=== PATIENT | female | born 1975 | race Caucasian/White ===

== ENCOUNTER 2021-04-02 11:41 | Emergency (ER) | payer BC ==
--- OUTSIDE RECORDS SUMMARY | 2021-04-02 11:43 | XMS REPORT | Continuity of Care Document ---
:1975 Author Organization [facility] t Address [address] [place] [address] Dr. Arriaza [address] [place] [id number] Care Team Providers Name Role Phone Unavailable Unavailable Unavailable Problems This patient has no known problems. Allergies, Adverse Reactions, Alerts This patient has no known allergies or adverse reactions. Medications This patient has no known medications. Procedures This patient has no known procedures. Results This patient has no known results.
[2021-04-02 12:48] LABS: Absolute Lymphocytes (CBC) 1.1 K/uL (0.7-4.9); Basophils % 0.2 % (0-1.3); Hematocrit 39.1 % (36.0-45.0); Lymphocytes % 8.2 % (15.3-44.8); MPV 7.6 fL (7.6-11.3); RBC Red Blood Cell Count 4.57 M/uL (3.86-4.86)
[2021-04-02 13:04] LABS: Potassium 3.1 mmol/L (3.5-5.1)
[2021-04-02] MEDS ORDERED: ONDANSETRON 4 MG/2 ML VIAL ONE (13:35)
--- NOTE | 2021-04-02 13:36 | RAD REPORT ---
EXAM DESCRIPTION: CT - Chest For Pe Angio - 04/02/2021 1:23 pm CLINICAL HISTORY: Chest pain. DYSPNEA COMPARISON: No comparisons TECHNIQUE: CT angiogram of the pulmonary arteries was performed with MIP. All CT scans are performed using dose optimization technique as appropriate and may include automated exposure control or mA/KV adjustment according to patient size. FINDINGS: No evidence of pulmonary thromboembolism. No acute aortic finding demonstrated. Moderate bilateral peripherally oriented ground-glass lung opacities are present greatest in the lowe r lobes. No significant pericardial or pleural fluid. No concerning bony finding. IMPRESSION: No evidence of pulmonary thromboembolism. Moderate bilateral ground-glass opacities in the periphery of lower lobes compatible with COVID-19 in fection.
--- NOTE | 2021-04-02 13:49 | ER ---
Nurse's Notes [facility] Name: Toshia Maynard Age: 45 yrs Sex: Female : 1975 Arrival Date: 04/02/2021 Time: 11:48 Bed 18 Private MD: Caio Kinsey Diagnosis: Pneumonia due to SARS-associated coronavirus Presentation: 04/02 12:12 Chief complaint: Spouse and/or significant other states: Pt was diagnosed with kg pneumonia last Tuesday at [place] and was started on Zithromax and didn't work and started her on stronger dose of Zithromax. Her PCP sent her over today. Coronavirus screen: Vaccine status: Patient reports being unvaccinated. Ebola Screen: Patient negative for fever greater than or equal to 101.5 degrees Fahrenheit, and additional compatible Ebola Virus Disease symptoms Patient denies exposure to infectious person. Patient denies travel to an Ebola-affected area in the 21 days before illness onset. Initial Sepsis Screen: Does the patient meet any 2 criteria? No. Patient's initial sepsis screen is negative. Does the patient have a suspected source of infection? Yes: Productive cough/pneumonia. Risk Assessment: Do you want to hurt yourself or someone else? Patient reports no desire to harm self or others. Onset of symptoms was March 29, 2021. 12:12 Method Of Arrival: Wheelchair kg 12:12 Acuity: TOD 3 kg Triage Assessment: 12:16 General: Appears uncomfortable, ill, Behavior is calm, cooperative, appropriate for kg age, quiet. Pain: Complains of pain in abdomen. PRODUCTION SUPV: 12:16 LMP N/A - Hysterectomy kg Historical: - Allergies: 12:16 PENICILLINS; kg - Home Meds: 12:16 Singulair Oral [Active]; prednisolone Oral [Active]; Xyzal oral [Active]; Zithromax kg Oral [Active]; atorvastatin oral [Active]; - PMHx: 12:16 Hypercholesterolemia; kg - PSHx: 12:16 Tonsillectomy; Right knee; L5 ruptured disc; section; Total abdominal kg hysterectomy; - Immunization history:: Adult Immunizations not up to date, Client reports having NOT received the Covid vaccine. - Social history:: Smoking status: Patient denies any tobacco usage or history of. Screenin:35 Abuse screen: Denies threats or abuse. Denies injuries from another. Nutritional ss screening: No deficits noted. Tuberculosis screening: Never had TB. Fall Risk None identified. Vital Signs: 12:12 BP 118 / 84; Pulse 110; Resp 22; Temp 98.4; Pulse Ox 100% on R/A; Weight 108.86 kg; kg Height 5 ft. 9 in. (175.26 cm); Pain 8/10; 13:35 BP 134 / 77; Pulse 97; Resp 19; Pulse Ox 97% on R/A; ss 15:32 BP 136 / 80; Pulse 98; Resp 16; Pulse Ox 100% ; ch5 12:12 Body Mass Index 35.44 (108.86 kg, 175.26 cm) kg ED Course: 11:48 Patient arrived in ED. mr 11:48 Caio Kinsey is Private Physician. mr 11:57 Kendra Steven F[facility]-C [facility] kb 11:57 Diego Land MD is Attending Physician. kb 12:16 Triage completed. kg 12:16 Arm band placed on right wrist. kg 12:25 Inserted saline lock: 20 gauge in right antecubital area, using aseptic technique. kg 12:34 CBC with Diff Sent. kg 12:34 Blood Culture Adult (2) Sent. kg 12:34 Basic Metabolic Panel Sent. kg 12:34 D-Dimer Sent. kg 12:34 Lactate Sent. kg 12:34 Procalcitonin Sent. kg 13:23 CT Chest For PE Angio In Process Unspecified. EDMS 13:35 Patient has correct armband on for positive identification. Bed in low position. Call ss light in reach. 14:00 Libby Herbert is Primary Nurse. kh1 15:32 No provider procedures requiring assistance completed. intact. ch5 Administered Medications: 13:25 Drug: Zofran (Ondansetron) 4 mg Route: IVP; Site: right antecubital; kg 14:09 Drug: NS 0.9% 1000 ml Route: IV; Rate: 1000 ml; Site: right antecubital; kh1 14:09 Drug: SOLU-Medrol (methylPrednisoLONE) 125 mg Route: IVP; Site: right antecubital; kh1 Outcome: 13:49 Discharge ordered by . kb 15:32 Discharged to home via wheelchair, with family. ch5 15:32 Condition: stable 15:32 Discharge instructions given to patient. 15:34 Patient left the ED. ch5 Signatures: Dispatcher [employer] EDKendra Hall, QUETA NEWTON-Jovita ArmendarizBere mr SalmonDo, RN RN Kayleigh Alvarez RN RN kg Harris, Kecia formerly [facility], 1928–1983 Dawit Villalobos RN RN [facility]
--- NOTE | 2021-04-02 13:50 | EDPHYS ---
Physician Documentation [facility] Name: Toshia Maynard Age: 45 yrs Sex: Female : 1975 Arrival Date: 04/02/2021 Time: 11:48 Bed 18 Private MD: Caio Kinsey ED Physician Diego Land HPI: 04/02 17:20 This 45 yrs old Female presents to ER via Wheelchair with complaints of kb Pneumonia. 17:20 The patient or guardian reports cough, difficulty breathing. Onset: The kb symptoms/episode began/occurred 3 week(s) ago. Severity of symptoms: At their worst the symptoms were moderate, in the emergency department the symptoms are unchanged. Modifying factors: The symptoms are alleviated by nothing, the symptoms are aggravated by nothing. Associated signs and symptoms: The patient has no apparent associated signs or symptoms. The patient has not experienced similar symptoms in the past. The patient has been recently seen by a physician:. Pt was diagnosed with covid 3 weeks ago. States she went to [place] last week for shortness of breath and cough. Was diagnosed with pneumonia and put on zithromax. Her PCP put her on a stronger dose of zithromax yesterday after she had a repeat chest x-ray done. Went to PCP office today and was sent to the ER.. 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 - Social history:: Smoking status: Patient denies any tobacco usage or history of. ROS: 17:19 Abdomen/GI: Negative for abdominal pain, nausea, vomiting, diarrhea, and constipation. kb 17:19 Constitutional: Positive for body aches, chills, fatigue, fever, malaise. 17:19 Respiratory: Positive for cough, dyspnea on exertion, shortness of breath. 17:19 All other systems are negative. Exam: 17:19 Head/Face: Normocephalic, atraumatic. ENT: Moist Mucous membranes Cardiovascular: kb Regular rate and rhythm with a normal S1 and S2. No gallops, murmurs, or rubs. No pulse deficits. Respiratory: Respirations even and unlabored. No increased work of breathing, no retractions or nasal flaring. Abdomen/GI: Soft, non-tender. No distention Skin: Warm, dry with normal turgor. Normal color. MS/ Extremity: Pulses equal, no cyanosis. Neurovascular intact. Full, normal range of motion. Neuro: Awake and alert, GCS 15, oriented to person, place, time, and situation. Moves all extremities. Normal gait. Psych: Awake, alert, with orientation to person, place and time. Behavior, mood, and affect are within normal limits. 17:19 Constitutional: The patient appears alert, awake, uncomfortable. Vital Signs: 12:12 BP 118 / 84; Pulse 110; Resp 22; Temp 98.4; Pulse Ox 100% on R/A; Weight 108.86 kg; kg Height 5 ft. 9 in. (175.26 cm); Pain 8/10; 13:35 BP 134 / 77; Pulse 97; Resp 19; Pulse Ox 97% on R/A; ss 15:32 BP 136 / 80; Pulse 98; Resp 16; Pulse Ox 100% ; ch5 12:12 Body Mass Index 35.44 (108.86 kg, 175.26 cm) kg MDM: 12:16 Patient medically screened. kb 17:18 Data reviewed: vital signs, nurses notes. Data interpreted: Pulse oximetry: on room air kb is 100 %. Interpretation: normal. Counseling: I had a detailed discussion with the patient and/or guardian regarding: the historical points, exam findings, and any diagnostic results supporting the discharge/admit diagnosis, lab results, radiology results, the need for outpatient follow up, a family practitioner, to return to the emergency department if symptoms worsen or persist or if there are any questions or concerns that arise at home. 17:18 ED course: Pt oxygen saturation 97-100% on room air during entire visit. No oxygen kb requirement. Pt educated on covid pneumonia findings. . 04/02 12:17 Order name: CBC with Diff; Complete Time: 12:50 kb 04/02 12:17 Order name: Basic Metabolic Panel; Complete Time: 13:06 kb 04/02 12:17 Order name: Blood Culture Adult (2) kb 04/02 12:17 Order name: D-Dimer; Complete Time: 12:53 kb 04/02 12:17 Order name: Lactate; Complete Time: 13:06 kb 04/02 12:17 Order name: Procalcitonin; Complete Time: 13:32 kb 04/02 12:17 Order name: IV Start; Complete Time: 12:34 kb 04/02 12:53 Order name: CT Chest For PE Angio; Complete Time: 13:36 kb Administered Medications: 13:25 Drug: Zofran (Ondansetron) 4 mg Route: IVP; Site: right antecubital; kg 14:09 Drug: NS 0.9% 1000 ml Route: IV; Rate: 1000 ml; Site: right antecubital; kh1 14:09 Drug: SOLU-Medrol (methylPrednisoLONE) 125 mg Route: IVP; Site: right antecubital; kh1 Disposition: 04/03 08:16 Co-signature as Attending Physician, Diego Land MD I agree with the assessment and shandra plan of care. Disposition Summary: 04/02/21 13:49 Discharge Ordered Location: Home kb Condition: Stable kb Diagnosis - Pneumonia due to SARS-associated coronavirus kb Followup: kb - With: Private Physician - When: 2 - 3 days - Reason: Recheck today's complaints, Continuance of care, Re-evaluation by your physician Followup: kb - With: Emergency Department - When: As needed - Reason: Worsening of condition Discharge Instructions: - Discharge Summary Sheet kb - COVID-19 kb - COVID-19 Frequently Asked Questions kb - 10 Things You Can Do to Manage Your COVID-19 Symptoms at Home - [facility] kb Forms: - Medication Reconciliation Form kb - Thank You Letter kb - Antibiotic Education kb - Prescription Opioid Use kb Signatures: Dispatcher [employer] Kendra Max FNP-C FNP-Diego Barker MD MD cha Graham, Kristen, [place] RN Libby Honeycutt [facility]
[2021-04-02] MEDS ORDERED: METHYLPREDNISOLONE 125 MG INJ ONE (14:25)
[2021-04-02 16:03] VITALS: TEMP 98.4
[2021-04-02 16:06] VITALS: BP 136/80; O2SAT 100
== END 2021-04-02 15:34 | disposition home or self-care (01) ==
LOC: ER 11:41
DX: U07.1 COVID-19 (principal); J12.82 Pneumonia due to coronavirus disease 2019; E78.00 Pure hypercholesterolemia, unspecified; Z88.0 Allergy status to penicillin
CPT/HCPCS: 87040 ×2; 85025; 80048; 36415; 85379; 83605; 84145; 71275; 96375; 96374; 99284; Q9967; J2930; J2405